=== PATIENT | female | born 1940 | race Caucasian/White ===

== ENCOUNTER 2022-11-12 23:50 | Inpatient (IN) | payer MEDICARE, BC ==
[~2022-11-12 23:50] MED LIST: Iopamidol 300 61% 100 ML VIAL FS ONE
[2022-11-13] MEDS ORDERED: fentaNYL 50 mcg/mL 1 mL Vial ONE ×2 (00:09→01:13)
[2022-11-13 00:16] LABS: #Basophils 0.1 10x3/uL (0.0-0.2); #Monocytes 0.6 10x3/uL (0.0-1.1); #Neutrophils 11.2 10x3/uL (1.5-8.4); %Basophils 0.4 % (0.0-2.0); %Eosinophils 0.2 % (0.0-6.0); %Lymphocytes 17.2 % (18.0-47.0); %Monocytes 4.1 % (0.0-10.0); Hematocrit 44.1 % (34.9-44.5); Hemoglobin 14.5 g/dL (12.0-15.5); Mean Corpuscular HGB CONC 32.9 g/dL (32.0-36.0); Mean Corpuscular Volume 91.1 fl (81.6-98.3); Mean Platelet Volume 9.8 fl (7.4-10.4); Platelet Count 347 10x3/uL (150-450); RBC Distribution Width 13.7 % (11.5-14.5); Red Blood Cell (RBC) Count 4.84 10x6/uL (3.90-5.03); White Blood Cell (WBC) Count 14.3 10x3/uL (3.5-10.5)
[2022-11-13 00:25] LABS: ALT (SGPT) 11 U/L (8-55); AST (SGOT) 22 U/L (5-34); Albumin 5.1 g/dL (3.4-4.8); Alkaline Phosphatase 123 U/L (40-110); Anion Gap 18 mmol/L (10-20); BUN (Urea Nitrogen) 21 mg/dL (9.8-20.1); Bilirubin, Total 0.3 mg/dL (0.2-1.2); Calc. Creatinine Clearance 0 mL/min (70-130); Calcium 11.5 mg/dL (7.8-10.44); Carbon Dioxide 26 mmol/L (23-31); Chloride 97 mmol/L (98-107); Estimated GFR 53; Globulin 3.4 g/dL (2.4-3.5); Glucose 148 mg/dL (83-110); Lipase 48 U/L (8-78); Magnesium 2.3 mg/dL (1.6-2.6); Potassium 3.9 mmol/L (3.5-5.1); Protein, Total 8.5 g/dL (5.8-8.1); Sodium 137 mmol/L (136-145)
[2022-11-13] MEDS ORDERED: Acetaminophen 325 MG TAB PO PRN (02:00)
[2022-11-13] MEDS ORDERED: Sodium Chloride 0.9% 1,000 ML IV SCH ×2 (02:15)
[2022-11-13] MEDS: Sodium Chloride 0.9% 1,000 ML IV SCH ×3 (03:28→20:42)
[2022-11-13 03:29] VITALS: BMI 16.6
[2022-11-13] MEDS ORDERED: Piperacillin/Tazobactam 3.375 GM in Sodium Chloride 0.9% 100 ML IVPB SCH ×2 (03:45→08:00)
[2022-11-13 04:21] LABS: Lactic Acid 1.4 mmol/L (0.5-2.2)
[2022-11-13 04:24] LABS: ALT (SGPT) 10 U/L (8-55); AST (SGOT) 23 U/L (5-34); Albumin 4.8 g/dL (3.4-4.8); Alkaline Phosphatase 115 U/L (40-110); Anion Gap 19 mmol/L (10-20); BUN (Urea Nitrogen) 18 mg/dL (9.8-20.1); Bilirubin, Total 0.4 mg/dL (0.2-1.2); Calc. Creatinine Clearance 33 mL/min (70-130); Calcium 10.9 mg/dL (7.8-10.44); Carbon Dioxide 20 mmol/L (23-31); Chloride 99 mmol/L (98-107); Estimated GFR 61; Globulin 3.4 g/dL (2.4-3.5); Glucose 159 mg/dL (83-110); Potassium 4.2 mmol/L (3.5-5.1); Protein, Total 8.2 g/dL (5.8-8.1); Sodium 134 mmol/L (136-145)
[2022-11-13 04:26] LABS: #Monocytes 0.4 10x3/uL (0.0-1.1); #Neutrophils 11.1 10x3/uL (1.5-8.4); %Basophils 0.3 % (0.0-2.0); %Lymphocytes 11.4 % (18.0-47.0); Hematocrit 42.8 % (34.9-44.5); Hemoglobin 14.3 g/dL (12.0-15.5); Mean Corpuscular HGB CONC 33.4 g/dL (32.0-36.0); Mean Corpuscular Hemoglobin 29.9 pg (27.0-33.0); Mean Corpuscular Volume 89.4 fl (81.6-98.3); Mean Platelet Volume 9.9 fl (7.4-10.4); Platelet Count 319 10x3/uL (150-450); RBC Distribution Width 13.8 % (11.5-14.5); Red Blood Cell (RBC) Count 4.79 10x6/uL (3.90-5.03); White Blood Cell (WBC) Count 13.1 10x3/uL (3.5-10.5)
[2022-11-13] MEDS ORDERED: Ketorolac Tromethamine 30 MG/ML VIAL IVP SCH (04:30)
[2022-11-13 05:15] LABS: Bilirubin Neg (Negative); Blood, Urine 25 (Negative); Clarity Clear (Clear); Glucose, Urine (Dipstick) Normal (Negative); Ketone, Urine Negative (Negative); Leukocyte Negative (Negative); Nitrite Negative (Negative); Protein, Urine (Dipstick) 15 mg/dl (Neg-Trace); Urobilinogen Normal mg/dL (Less than 2)
[2022-11-13 05:25] LABS: Bacteria/HPF None Seen HPF (None Seen); CAUTI Indications for Culture Dysuria,urgency,freq; RBC/HPF 0-3 HPF (0-3); Squamous Epithelial 0-3 HPF (0-3); WBC/HPF None Seen HPF (0-3)
[2022-11-13 05:26] LABS: Urine Culture Reflex No No
[2022-11-13] MEDS ORDERED: Morphine 2 MG/ML VIAL SLOW IVP PRN (10:41)
[2022-11-13] MEDS: Ondansetron ODT 4 MG TAB PO PRN ×2 (11:14→21:47)
[2022-11-13] MEDS: Pantoprazole 40 MG VIAL IVP SCH (11:26)
[2022-11-13] MEDS: Heparin 5,000 UNITS/ML VIAL SC SCH ×2 (13:09→20:42)
[2022-11-13 13:11] LABS: Hemoglobin A1c 5.5 % (4.0-6.0)
[2022-11-13] MEDS: Morphine 4 MG/ML VIAL SLOW IVP PRN (21:47)
[2022-11-14] MEDS: Sodium Chloride 0.9% 1,000 ML IV SCH ×3 (06:05→19:31)
[2022-11-14] MEDS: Pantoprazole 40 MG VIAL IVP SCH (08:19)
[2022-11-14] MEDS: Heparin 5,000 UNITS/ML VIAL SC SCH ×2 (08:19→21:26)
[2022-11-14 08:57] LABS: #Eosinphils 0.1 10x3/uL (0.0-0.5); #Monocytes 0.4 10x3/uL (0.0-1.1); #Neutrophils 2.8 10x3/uL (1.5-8.4); %Basophils 0.8 % (0.0-2.0); %Eosinophils 1.6 % (0.0-6.0); %Lymphocytes 33.7 % (18.0-47.0); %Monocytes 8.2 % (0.0-10.0); %Neutrophils 55.5 % (40.0-75.0); Hematocrit 39.8 % (34.9-44.5); Hemoglobin 12.8 g/dL (12.0-15.5); Mean Corpuscular HGB CONC 32.2 g/dL (32.0-36.0); Mean Corpuscular Hemoglobin 29.7 pg (27.0-33.0); Mean Corpuscular Volume 92.3 fl (81.6-98.3); Mean Platelet Volume 9.7 fl (7.4-10.4); Platelet Count 237 10x3/uL (150-450); RBC Distribution Width 14.2 % (11.5-14.5); Red Blood Cell (RBC) Count 4.31 10x6/uL (3.90-5.03); White Blood Cell (WBC) Count 5.1 10x3/uL (3.5-10.5)
[2022-11-14 09:35] LABS: Anion Gap 16 mmol/L (10-20); BUN (Urea Nitrogen) 8 mg/dL (9.8-20.1); Calc. Creatinine Clearance 46 mL/min (70-130); Calcium 8.9 mg/dL (7.8-10.44); Carbon Dioxide 20 mmol/L (23-31); Chloride 107 mmol/L (98-107); Estimated GFR 87; Glucose 88 mg/dL (83-110); Potassium 3.8 mmol/L (3.5-5.1); Sodium 139 mmol/L (136-145)
[2022-11-14] MEDS ORDERED: Polyethylene Glycol 3350 17 GM Packet PO SCH (12:15)
[2022-11-14] MEDS ORDERED: hydrALAZINE 20 MG/ML VIAL SLOW IVP PRN (13:28)
[2022-11-14] MEDS ORDERED: Simethicone Chewable 80 MG TAB PO PRN (18:44)
[2022-11-14] MEDS: Polyethylene Glycol 3350 17 GM Packet PO SCH (21:26)
[2022-11-14] MEDS: Ondansetron ODT 4 MG TAB PO PRN (21:36)
[2022-11-14] MEDS: Morphine 4 MG/ML VIAL SLOW IVP PRN (21:38)
[2022-11-15] MEDS: Sodium Chloride 0.9% 1,000 ML IV SCH ×2 (04:14→13:35)
[2022-11-15] MEDS: Pantoprazole 40 MG VIAL IVP SCH (08:20)
[2022-11-15] MEDS: Heparin 5,000 UNITS/ML VIAL SC SCH (08:20)
[2022-11-15] MEDS: Polyethylene Glycol 3350 17 GM Packet PO SCH (08:20)
[2022-11-15 14:01] VITALS: BP 146/75; TEMP 97.8
== END 2022-11-15 12:00 | disposition home or self-care (01) | DRG 389 ==
LOC: CSHERS 23:50 → INTOOBSV 11-13 03:03 → CSHTELE 11-13 03:03 → OBSVTOIN 11-14 13:22
PROVIDERS: ADMIT Internal Medicine; ATTEND Internal Medicine
PROC: 0D9670Z Drainage of Stomach with Drainage Device, Via Natural or Artificial Opening (ICD-10-PCS; principal; 2022-11-14)
DX: K56.609 Unspecified intestinal obstruction, unspecified as to partial versus complete obstruction (principal); I47.1 Supraventricular tachycardia; I10 Essential (primary) hypertension; E83.52 Hypercalcemia; H35.30 Unspecified macular degeneration; K21.9 Gastro-esophageal reflux disease without esophagitis; Z98.890 Other specified postprocedural states; Z79.899 Other long term (current) drug therapy; Z83.3 Family history of diabetes mellitus; Z90.710 Acquired absence of both cervix and uterus; Z98.51 Tubal ligation status; Z88.8 Allergy status to other drugs, medicaments and biological substances; Z88.6 Allergy status to analgesic agent
CPT/HCPCS: 36415; 71045; 74018; 74177; 76705; 80048; 80053; 81001; 83036; 83605; 83690; 83735; 83970; 85025; 87040; 93005; 93010; 96372; 96375; 96376; C9113; G0378; J1644; J1885; J2270; J2272; J2543; J3010; J3490; J7050; Q0162; Q9967